=== PATIENT | male | born 1950 | race Caucasian/White ===

== ENCOUNTER 2022-01-27 07:53 | Day surgery (SDC) | payer MEDICARE ==
[2022-01-27 08:51] LABS: Mean Platelet Volume 7.2; Platelet Count 214 k/uL (150-450)
[2022-01-27 08:57] LABS: Prothrombin Time 10.5 sec (9.0-12.0)
[2022-01-27 09:05] VITALS: RESP 16; TEMP 98.3
[2022-01-27] MEDS ORDERED: PROPOFOL 10 MG/ML 20 ML VIAL IV ONE (10:05)
[2022-01-27] MEDS ORDERED: fentaNYL (PF) 50 MCG/ML 2 ML AMP ONE (10:05)
[2022-01-27] MEDS ORDERED: MIDAZOLAM 2 MG/2 ML VIAL ONE (10:05)
[2022-01-27] MEDS ORDERED: LIDOCAINE 1% INJ 10MG/ML (5 ML VIAL-PF) SQ ONE (10:21)
[2022-01-27] MEDS ORDERED: IV FLUID CONTINUATION 100 ML IV ONE (10:58)
[2022-01-27 12:04] VITALS: BP 119/72; PULSE 55
--- NOTE | 2022-01-27 12:39 | CT ---
EXAMINATION TYPE: CT biopsy bone deep DATE OF EXAM: 01/27/2022 COMPARISON: Outside CT scanner HISTORY: Sclerotic left pelvic lesion CT DLP: 1201 mGycm The procedure is discussed with the patient, the risks, complications, benefits and alternatives, wer e discussed and any questions were answered. Informed consent was obtained. The patient is placed p carlos on the CT table, prepped and draped in the usual sterile fashion. The Department of anesthesiol chiki provided anesthesia. Utilizing a 11 [place]iba bone access needle into sclerotic changes within the left iliac bone. 2 samples were obtained.. Pathology pending. All elements of maximal barrier and sterile technique were utili zed. The patient remained stable throughout the procedure with no immediate postprocedural complicat ion. IMPRESSION: 1. Successful CT guided bone biopsy of sclerotic left pelvic lesion
== END 2022-01-27 12:08 | disposition home or self-care (01) ==
LOC: RADPROMAIN 07:53
PROVIDERS: ATTEND Internal Medicine Hematology & Oncology
DX: M89.8X8 Other specified disorders of bone, other site (principal); E78.5 Hyperlipidemia, unspecified; F17.210 Nicotine dependence, cigarettes, uncomplicated; E11.9 Type 2 diabetes mellitus without complications; I25.10 Atherosclerotic heart disease of native coronary artery without angina pectoris; Z98.52 Vasectomy status; Z98.890 Other specified postprocedural states; Z95.5 Presence of coronary angioplasty implant and graft; Z97.2 Presence of dental prosthetic device (complete) (partial); Z80.8 Family history of malignant neoplasm of other organs or systems; Z79.82 Long term (current) use of aspirin; Z79.84 Long term (current) use of oral hypoglycemic drugs; Z79.899 Other long term (current) drug therapy
CPT/HCPCS: 82947; 85049; 85610; 88342; 88307; 88311; 88341; 36415; 77012; 20225; J2250; J2001; J3010; J2704

== ENCOUNTER → 2022-06-02 | Outpatient (CLI) | payer MEDICARE ==
[2022-06-02 11:15] LABS: African American GFR (CKD) >90 (>60 ml/min/1.73 sqM); Blood Urea Nitrogen 15 mg/dL (9-20); Non-African American GFR(CKD) 88 (>60 ml/min/1.73 sqM)
--- NOTE | 2022-06-02 13:55 | CT ---
EXAMINATION TYPE: CT angio chest DATE OF EXAM: 06/02/2022 COMPARISON: None HISTORY: 72-year-old male I77.1, subclavian stenosis TECHNIQUE: Contiguous axial scanning of the chest performed without and with IV Contrast, patient inj ected with 100 mL of Isovue 370. Coronal/sagittal reconstructions performed. 3-D reconstructions gene rated on a dedicated workstation. CT DLP: 995.7 mGycm Automated exposure control for dose reduction was used. FINDINGS: Possible left inferior thyroid isthmic nodule measuring up to 3.5 x 2.0 cm. Dedicated thyroid ultraso und evaluation with patient able. Heart normal size without pericardial effusion. Three-vessel coronary artery calcifications are prese nt in remarkable for coronary disease. Mild aneurysm aortic root at 4.3 cm. Ascending aorta normal caliber at 3.4 cm. Mild atherosclerotic calcification and plaque within the aortic arch and descending thoracic aorta. There is a focal severe stenosis of the left subclavian artery prior to the takeoff of the nondominan t left vertebral artery. Located 3.4 cm above the origin from the aortic arch. No thoracic lymphadenopathy by CT size criteria. Fine interstitial subpleural changes at the lower lobes. Mild centrilobular emphysema no consolidatio n or pleural effusion. Tiny hiatal hernia. Visualized upper abdomen shows low-density thickening of the left adrenal gland, hilar splenule, and a partially visualized nonobstructive left renal calculus measuring at least 8 mm. Bones: Diffuse heterogeneous sclerosis extending from the midthoracic spine down outside the field of view. We note a previous pelvic bone biopsy on 01/27/2022. Multiple endplate Schmorl's nodes mid and lower thoracic spine. Degenerative change sternomanubrial joint. IMPRESSION: 1. FOCAL SEVERE STENOSIS PROXIMAL LEFT SUBCLAVIAN ARTERY LOCATED 3.4 CM ABOVE ITS ORIGIN FROM THE AOR TIC ARCH. 2. INCIDENTAL DIMINUTIVE/NONDOMINANT LEFT VERTEBRAL ARTERY. 3. POSSIBLE LEFT INFERIOR THYROID ISTHMUS NODULE MEASURING 3.5 X 2.0 CM. DEDICATED THYROID ULTRASOUND WHEN PATIENT ABLE. 4. CAD WITH 3 VESSEL CORONARY ARTERY CALCIFICATIONS. MILD ANEURYSM AORTIC ROOT AT 4.3 CM. 5. COPD WITH MILD EMPHYSEMA. SOME FINE INTERSTITIAL SCARRING AT THE LOWER LUNGS. 6. PARTIALLY VISUALIZED 8 MM NONOBSTRUCTIVE LEFT RENAL CALCULUS. 7. DIFFUSE HETEROGENEOUS SCLEROSIS OF THE SPINE EXTENDING FROM THE MIDTHORACIC SPINE DOWN OUTSIDE THE FIELD OF VIEW. WE NOTE A PREVIOUS PELVIC BONE BIOPSY ON 01/27/2022. CORRELATE WITH RESULTS OF THE BIO PSY. APPROPRIATE FOLLOW-UP RECOMMENDED.
== END | disposition home or self-care (01) ==
LOC: RADCTMAIN 10:25
PROVIDERS: ATTEND Surgery
DX: I73.9 Peripheral vascular disease, unspecified (principal); J43.9 Emphysema, unspecified; N20.0 Calculus of kidney
CPT/HCPCS: 82565; 84520; 71275; 36415; Q9967

== ENCOUNTER 2022-07-12 05:59 | Day surgery (SDC) | payer MEDICARE ==
[~2022-07-12 05:59] MED LIST: SODIUM CHLORIDE 0.9% 1,000 ML in EMPTY BAG 1 BAG IV ONE
[2022-07-12 06:33] LABS: Glucose,Whole Blood 120 mg/dL (70-110)
[2022-07-12 06:39] LABS: Basophils # (A) 0.1 k/uL (0-0.2); Basophils % (A) 1 %; Eosinophils # (A) 0.3 k/uL (0-0.7); Eosinophils % (A) 3 %; HCT 42.8 % (39.0-53.0); HGB 14.6 gm/dL (13.0-17.5); Lymphocytes # (A) 1.7 k/uL (1.0-4.8); Lymphocytes % (A) 17 %; MCH 30.1 pg (25.0-35.0); MCV 88.5 fL (80.0-100.0); Mean Platelet Volume 7.8; Monocytes # (A) 0.5 k/uL (0-1.0); Monocytes % (A) 5 %; Neutrophils # (A) 7.6 k/uL (1.3-7.7); Neutrophils % (A) 74 %; Platelet Count 175 k/uL (150-450); RBC 4.84 m/uL (4.30-5.90); RDW 13.6 % (11.5-15.5); WBC 10.2 k/uL (3.8-10.6)
[2022-07-12] MEDS ORDERED: SODIUM CHLORIDE 0.9% 1,000 ML IV ONE (06:40)
[2022-07-12 06:46] LABS: African American GFR (CKD) >90 (>60 ml/min/1.73 sqM); Anion Gap 10 mmol/L; Blood Urea Nitrogen 15 mg/dL (9-20); Calcium 8.7 mg/dL (8.4-10.2); Carbon Dioxide 21 mmol/L (22-30); Chloride 109 mmol/L (98-107); Glucose 120 mg/dL (74-99); Non-African American GFR(CKD) >90 (>60 ml/min/1.73 sqM); Potassium 4.7 mmol/L (3.5-5.1); Sodium 140 mmol/L (137-145)
[2022-07-12] MEDS ORDERED: ASPIRIN 81 MG ONE (07:09)
[2022-07-12 07:16] VITALS: RESP 16; TEMP 98.2
[2022-07-12] MEDS ORDERED: fentaNYL (PF) 50 MCG/ML 2 ML AMP ONE (07:26)
[2022-07-12] MEDS ORDERED: MIDAZOLAM 2 MG/2 ML VIAL IV ONE (07:35)
[2022-07-12] MEDS ORDERED: fentaNYL (PF) 50 MCG/ML 2 ML AMP IV ONE (07:35)
[2022-07-12] MEDS ORDERED: LIDOCAINE 1% INJ 10MG/ML (30 ML VIAL-PF) SQ ONE (07:39)
[2022-07-12] MEDS ORDERED: HEPARIN SODIUM 1,000 UN/ML (10ML VL) ONE (07:44)
[2022-07-12] MEDS ORDERED: HEPARIN SODIUM 1,000 UN/ML (10ML VL) IV ONE (07:46)
[2022-07-12] MEDS ORDERED: CLOPIDOGREL 75 MG TAB ONE (08:43)
[2022-07-12] MEDS ORDERED: PROTAMINE SULFATE 10 MG/ML 5 ML VIAL IV ONE ×2 (08:45→08:47)
[2022-07-12] MEDS ORDERED: CLOPIDOGREL 75 MG TAB PO ONE (08:45)
[2022-07-12] MEDS ORDERED: IOPAMIDOL-250 100ML BTL INTRAARTER ONE (08:49)
--- NOTE | 2022-07-12 09:31 | P.OP ---
Date of Procedure: 07/12/22 Preoperative Diagnosis: Symptomatic left subclavian artery stenosis >95% Postoperative Diagnosis: Symptomatic left subclavian artery stenosis Resolved left subclavian artery stenosis Procedure(s) Performed: 1. Ultrasound guided left brachial artery access 2. Aortic arch and selective left subclavian artery angiogram 3. PTBA of the left subclavian artery 4. IVUS of the left subclavian artery 5. Percutaneous stenting of the left subclavian artery with [id number] Protege stent 6. Conscious sedation x 72 minutes Anesthesia: local Surgeon: Orlando Jay Estimated Blood Loss (ml): 5 Pathology: none sent Condition: stable Disposition: PACU Indications for Procedure: 72 year old gentleman presented originally to the office with complaints of left hand numbness with exercise and activity. He had arterial doppler which demonstrated significant difference in blood flow with evidence of left subclavian stenosis and therefore had a CTA that demonstrates severe >95% focal area of stenosis. He presents today for angiogram and intervention. Operative Findings: >95% stenosis of the left subclavian artery 10mm length Description of Procedure: After written and informed consent was obtained from the patient and all risks, benefits and complications were discussed the patient was brought to the laboratory helper and laid in a supine position with his left arm outstretched on an armboard. The left arm was prepped and draped in usual sterile fashion. Timeout was performed fashion with all parties in agreement. Utilizing ultrasound the left brachial artery was visualized and shown to be patent without any significant ca lcification or disease and was accessed after local anesthetic was infused overlying the artery. A micro-access needle and system was utilized and the artery was accessed under direct visualization of ultrasound. Retrograde angiogram was then obtained demonstrating good intraluminal access. A 5-Kazakh sheath was then placed utilizing Seldinger technique. 035 Glidewire was then placed into the subclavian artery just distal to the area of stenosis. 035 quick cross catheter was then guided to the subclavian artery and a selective angiogram was obtained demonstrating greater than 95% stenosis of the left subclavian artery at a focal area. Utilizing the Glidewire and quick cross catheter the lesion was crossed and the aortic arch was entered. Catheter was then placed into the aortic arch and arch angiogram was obtained demonstrating good intraluminal access across the lesion. Patient was administered 5000 units of heparin and balloon angioplasty was performed with a 6 x 20 mm balloon. A 6- Kazakh 25 cm sheath was then exchanged for the short 5-Kazakh sheath and retrograde angiogram was obtained demonstrating improvement but still significant stenosis at the lesion. A 9 x 40 mm balloon was then placed and balloon angioplasty was performed demonstrating significant improvement of the lesion. There appeared to be a dissection at the area of question and quick cross catheter was placed across the lesion once again and exchanged for an 014 wire. An .014 IVUS catheter was placed and intraluminal ultrasound was performed on the subclavian artery with measurements obtained which demonstrated areas approximately 10 mm in width. Angiogram demonstrated roughly 9.6 mm at the proximal distal aspect of the lesion and therefore it was determined to place a 10 x 30 mm self-expanding stent across the lesion. 014 wire was then exchanged for an 035 wire and a 10 x 30 mm self-expanding Proteg stent was chosen and deployed in normal fashion across the lesion. Once completed final angiogram was obtained demonstrating complete resolution of the stenosis with brisk flow throughout the left upper extremity. Good filling of the vertebral artery was also noted. All guidewires and catheters were then removed, ACT was obtained demonstrating greater than 200 and therefore protamine was given. Sheath was removed and pressure was held for hemostasis. The patient tolerated the procedure well and had a palpable radial pulse at the conclusion of the procedure. Plan - Discharge Summary Discharge Rx Participant: No New Discharge Prescriptions: No Action RX: Aspirin 81 mg PO DAILY Atorvastatin [Lipitor] 80 mg PO DAILY RX: lisinopriL 2.5 mg PO DAILY Metoprolol Tartrate [Lopressor] 25 mg PO DAILY metFORMIN HCL [Glucophage] 500 mg PO DAILY Discharge Medication List Atorvastatin [Lipitor] 80 mg PO DAILY 01/19/22 [History] Metoprolol Tartrate [Lopressor] 25 mg PO DAILY 01/19/22 [History] RX: Aspirin 81 mg PO DAILY 01/19/22 [History] metFORMIN HCL [Glucophage] 500 mg PO DAILY 01/19/22 [History] RX: lisinopriL 2.5 mg PO DAILY 07/11/22 [History] Follow up Appointment(s)/Referral(s): Orlando Jay DO [STAFF PHYSICIAN] - 2 Weeks Activity/Diet/Wound Care/Special Instructions: no lifting greater than 10-15 lbs with the left arm prescription given for plavix 75mg daily Discharge Disposition: HOME SELF-CARE
[2022-07-12 18:56] VITALS: BP 152/82; PULSE 54
--- NOTE | 2022-07-13 10:06 | IR ---
EXAMINATION TYPE: IR stent intravas non coronary DATE OF EXAM: 07/12/2022 CLINICAL HISTORY: Left subclavian stenosis. TECHNIQUE: Fluoroscopy. COMPARISON: CTA chest 2021. FINDINGS: Fluoroscopic guidance was provided during left subclavian stenosis treatment procedure per formed by Dr. Jay. A total of 12.3 minutes of fluoroscopic time was utilized during the procedur e and 199 spot images was acquired. Please refer to procedure note for further details. IMPRESSION: As Above.
== END 2022-07-12 13:01 | disposition home or self-care (01) ==
LOC: CATHCVL 05:59
PROVIDERS: ATTEND Surgery
DX: I77.1 Stricture of artery (principal); Z79.82 Long term (current) use of aspirin; Z79.02 Long term (current) use of antithrombotics/antiplatelets; Z79.899 Other long term (current) drug therapy; Z79.84 Long term (current) use of oral hypoglycemic drugs
CPT/HCPCS: 36221; 37236; 80048; 85025; C1769 ×5; C1876; C1725; C1887; C1894 ×2; C1753; J2250; J2720; J2001; J3010; J1644; Q9966

== ENCOUNTER → 2022-10-13 | Outpatient (CLI) | payer MEDICARE ==
--- NOTE | 2022-10-13 15:26 | NM ---
EXAMINATION TYPE: NM bone scan whole body DATE OF EXAM: 10/13/2022 COMPARISON: NONE HISTORY: R79.9 ABNORMAL BONE MARROW ON IMAGING Delayed whole-body scanning was performed following the injection of 21.6 mCi Tc 99m MDP. Images acq uired 3.5 hours post injection. FINDINGS: Degenerative uptake noted to involve the shoulders, sternoclavicular joints, mid thoracic spine, lowe r thoracolumbar spine, bilateral knees and ankles and feet. Moderate increased uptake mid to lower th oracic spine may be on a degenerative basis however radiographic correlation is recommended to exclud e the metastatic disease or malignancy. IMPRESSION: Moderate increased uptake mid to lower thoracic spine may be on a degenerative basis however radiogra phic correlation is recommended to exclude the metastatic disease or malignancy.
== END | disposition home or self-care (01) ==
LOC: RADNMMAIN 09:48
PROVIDERS: ATTEND Internal Medicine Hematology & Oncology
DX: R93.7 Abnormal findings on diagnostic imaging of other parts of musculoskeletal system (principal); R79.9 Abnormal finding of blood chemistry, unspecified
CPT/HCPCS: 78306

== ENCOUNTER → 2023-10-09 | Outpatient (CLI) | payer MEDICARE ==
--- NOTE | 2023-10-09 16:01 | NM ---
EXAMINATION TYPE: NM bone scan whole body DATE OF EXAM: 10/09/2023 COMPARISON: NONE HISTORY: Abnormal bone marrow Delayed whole-body scanning was performed following the injection of 22.9 mCi Tc 99m MDP. Images wer e acquired 3 hours post injection. FINDINGS: There is mild increased uptake near the sternoclavicular and first right rib and region. Findings jorge ear more compatible with degenerative type change. The uptake within the thoracic and lumbar spine has markedly diminished over the interval. Radiotrace r subtly increased in the thoracolumbar region appear similar in distribution to the prior exam. No new focal areas of uptake are identified. Radiotracer distribution otherwise appears unremarkable. IMPRESSION: 1. Diminished intensity with similar distribution of mild radiotracer the thoracolumbar spine
== END | disposition home or self-care (01) ==
LOC: RADNMMAIN 10:18
PROVIDERS: ATTEND Internal Medicine Hematology & Oncology
DX: R93.7 Abnormal findings on diagnostic imaging of other parts of musculoskeletal system (principal); R79.9 Abnormal finding of blood chemistry, unspecified
CPT/HCPCS: 78306; A9503